=== PATIENT | male | born 1980 | race African-American/Black ===

== ENCOUNTER 2018-09-28 09:11 | Inpatient (IN) | payer OTHER ==
[2018-09-28 09:44] VITALS: BMI 18.1
--- NOTE | 2018-09-28 09:59 | HP ---
COWS - Scale Resting Pulse: 0= CA 80 or Below Sweatin=Flushed/Facial Moisture Restless Observation: 3= Extraneous Movement Pupil Size: 2= Moderately Dilated Bone or Joint Aches: 2= Severe Diffuse Aches Runny Nose/ Eye Tearin= Nasal Congestion GI Upset > 30mins: 3= Vomiting/Diarrhea Tremor Observation: 2= Slight Tremor Visible Yawning Observation: 1= 1-2x During Session Anxiety or Irritability: 2=Irritable/Anxious Goose Flesh Skin: 0=Smooth Skin (patient qualifies for opiate detox) COWS Score: 18 CIWA Score Nausea/Vomitin Muscle Tremors: 3 Anxiety: 3 Agitation: 3 Paroxysmal Sweats: 3 Orientation: 3-Disoriented Date>2 days Tacttile Disturbances: 1-Very Mild Itch/Numbness Auditory Disturbances: 1-Very Mild Visual Disturbances: 1-Very Mild Sensitivity Headache: 1-Very Mild CIWA-Ar Total Score: 22 - Admission Criteria OASAS Guidelines: Admission for Medically Managed Detox: Requires at least one of the followin. CIWA greater than 12 2. Seizures within the past 24 hours 3. Delirium tremens within the past 24 hours 4. Hallucinations within the past 24 hours 5. Acute intervention needed for co occurring medical disorder 6. Acute intervention needed for co occurring psychiatric disorder 7. Severe withdrawal that cannot be handled at a lower level of care (continued vomiting, continued diarrhea, abnormal vital signs) requiring intravenous medication and/or fluids 8. Patient presents the following: None of the above (Patient qualifies for detox from alcohol) Admission Criteria Met: Admission criteria not met Admission ROS [facility] Chief Complaint: Patient is here for alcohol, heroin withdrawals. "i'm tired of my ass getting jumped and it's time for me to change my life" "I'm here to get the help" Allergies/Adverse Reactions: Allergies Allergy/AdvReac Type Severity Reaction Status Date / Time No Known Drug Allergies Allergy Verified 09/28/18 09:31 fish derived AdvReac Severe Vomiting Verified 09/28/18 09:31 shellfish derived AdvReac Severe Vomiting Verified 09/28/18 09:31 NKDA Allergy Uncoded 09/28/18 09:31 seafood AdvReac Severe Vomiting Uncoded 09/28/18 09:31 History of Present Illness: Patient is 38 year old black male who was transferred from [facility] after being found unconscious and given naltrexone. He is here to be detoxed. He has AOB. He is using 10 beers per day and last drank this morning 5 beers. He uses marijuana about 20 bags per day and used this morning. He also admits to using K2 and cocaine. He uses cocaine $50 per day of cocaine, intravenously He uses heroin 10 bags per day, intravenously and last used last night. He has a prior history of Asthma, Seizure Disorder,Schizophrenia, Diabetes,and Bipolar Disorder. But he has not medications for it. He is undomiciled at this time but does not go to shelters. He has legal problems: warrant for arrest due to drug possession. Exam Limitations: Intoxication - Ebola screening Have you traveled outside of the country in the last 21 days: No Have you had contact with anyone from an Ebola affected area: No Do you have a fever: No - Review of Systems Constitutional: Chills, Diaphoresis EENT: reports: Blurred Vision, Nose Bleeding, Dental Problems Respiratory: reports: Cough, Wheezing Cardiac: reports: No Symptoms Reported GI: reports: Nausea, Poor Fluid Intake, Vomiting, Abdominal cramping : reports: No Symptoms Reported Musculoskeletal: reports: Back Pain, Muscle Pain, Neck Pain Integumentary: reports: No Symptoms Reported Neuro: reports: Headache, Numbness, Unsteady Gait Endocrine: reports: No Symptoms Reported, Unexplained Weight Loss Hematology: reports: Easy Bruising Psychiatric: reports: Agitated, Anxious, Disorientated Patient History - Patient Medical History Hx Anemia: No Hx Asthma: Yes Hx Chronic Obstructive Pulmonary Disease (COPD): No Hx Cancer: No Hx Cardiac Disorders: No Hx Congestive Heart Failure: No Hx Hypertension: No Hx Hypercholesterolemia: No Hx Pacemaker: No HX Cerebrovascular Accident: No Hx Seizures: Yes (last week) Hx Dementia: No Hx Diabetes: Yes Hx Gastrointestinal Disorders: No Hx Liver Disease: No Hx Genitourinary Disorders: No Hx Sexually Transmitted Disorders: No Hx Renal Disease (ESRD): No Hx Hepatitis C: No Hx Depression: No Hx Suicide Attempt: No Hx Bipolar Disorder: No Hx Schizophrenia: Yes - Patient Surgical History Past Surgical History: No Hx Neurologic Surgery: No Hx Cataract Extraction: No Hx Cardiac Surgery: No Hx Lung Surgery: No Hx Breast Surgery: No Hx Breast Biopsy: No Hx Abdominal Surgery: No Hx Appendectomy: No Hx Cholecystectomy: No Hx Genitourinary Surgery: No Hx Section: No Hx Orthopedic Surgery: No - PPD History Date: 03/21/15 - Smoking Cessation Smoking history: Current every day smoker Have you smoked in the past 12 months: Yes Aproximately how many cigarettes per day: 20 Cigars Per Day: 0 Hx Chewing Tobacco Use: No Initiated information on smoking cessation: Yes 'Breaking Loose' booklet given: 09/28/18 - Substance & Tx. History Hx Alcohol Use: Yes (1 pint and 6 pack of beer) Hx Substance Use: Yes (heroin 10 bags per day) Substance Use Type: Alcohol, Cocaine, Heroin, Marijuana Hx Substance Use Treatment: Yes (a long time ago does not remember what hospital it was) - Substances abused Crack Substance route: Smoking Frequency: Daily Amount used: $40 Age of first use: 8 Date of last use: 09/28/18 Alcohol Substance route: Oral Frequency: Daily Amount used: Beer- crazy horse 24 oz Age of first use: 18 Date of last use: 09/28/18 K2/Spice Substance route: Smoking Frequency: Daily Amount used: i stick Age of first use: 15 Date of last use: 09/27/18 Heroin Substance route: Injection Frequency: 1-2 times per week Amount used: 2 bags Age of first use: 10 Date of last use: 09/27/18 Family Disease History - Family Disease History Family Disease History: Diabetes: Father (etoh ), Heart Disease: Father , Respiratory: Sister (asthma), Other: Mother (crack cocaine ), Brother (alcohol dependence) Admission Physical Exam S - Vital Signs Vital Signs: Vital Signs - 24 hr 09/28/18 09:36 Temperature 97.4 F L Pulse Rate 65 Respiratory 16 Rate Blood Pressure 104/65 - Physical General Appearance: Yes: Mild Distress, Irritable, Sweating HEENTM: Yes: EOMI, Hearing grossly Normal, Normocephalic, Normal Voice, ROSALINA, Pharynx Normal Respiratory: Yes: Chest Non-Tender, Lungs Clear, Normal Breath Sounds, No Respiratory Distress, No Accessory Muscle Use Neck: Yes: Mass, Other Breast: Yes: Within Normal Limits Cardiology: Yes: Regular Rhythm, Regular Rate, S1, S2 Abdominal: Yes: Non Tender, Flat, Soft (track ibarra forearms. Huge neck mass left sided) Genitourinary: Yes: Within Normal Limits Back: Yes: Normal Inspection Extremities: Yes: Normal Capillary Refill, Normal Inspection, Normal Range of Motion, Non-Tender Neurological: Yes: chart computer II-XII NML intact, Fully Oriented, Motor Strength 5/5 Integumentary: Yes: Dry Lymphatic: Yes: Within Normal Limits - Addiitonal Findings: Patient has a large neck mass on left side. - Diagnostic (1) Alcohol dependence with uncomplicated withdrawal Current Visit: Yes Status: Chronic (2) Asthma Current Visit: No Status: Chronic Qualifiers: Asthma severity: mild intermittent Asthma complication type: uncomplicated Qualified Code(s): J45.20 - Mild intermittent asthma, uncomplicated (3) Nicotine dependence Current Visit: Yes Status: Chronic Qualifiers: Nicotine product type: cigarettes Substance use status: other nicotine- induced disorder Qualified Code(s): F17.218 - Nicotine dependence, cigarettes , with other nicotine-induced disorders Cleared for Admission S - Detox or Rehab S Level of Care: Medically Managed Detox Regimen/Protocol: Methadone/Librium Screened but not Admitted - Documentation of Visit Screened but not Admitted: No Vital Signs - Vital Signs Vital signs refused: No Temperature: 97.4 F Temperature source: Oral Pulse Rate: 65 Respiratory Rate: 16 Blood Pressure: 104/63 BP Location: Left Arm Blood Pressure position: Sitting - Height Height: 6 ft 4 in - Weight Weight: 149 lb Weight measurement method: Standing scale - BMI Body Mass Index (BMI): 18.1 - Bowel Function Bowel Movement: No POC Urine test - Test device test lot number: not applicable Inpatient Rehab Admission - Rehab Decision to Admit Inpatient rehab admission?: No
[2018-09-28] MEDS ORDERED: MAGNESIUM HYDROX 2400MG/30ML ORAL SUSPENSION 30 ML CUP PO PRN (10:47)
[2018-09-28] MEDS ORDERED: cloNIDine HCL 0.1 MG TABLET PO PRN (10:47)
[2018-09-28] MEDS ORDERED: IBUPROFEN 400 MG TABLET (FP) PO PRN (10:47)
[2018-09-28] MEDS ORDERED: METHOCARBAMOL 500 MG TABLET PO PRN (10:47)
[2018-09-28] MEDS ORDERED: MENTHOL/PHENOL 1 EACH UD MM PRN (10:47)
[2018-09-28] MEDS ORDERED: ACETAMINOPHEN 325 MG TABLET (FP) PO PRN ×2 (10:47)
[2018-09-28] MEDS ORDERED: traZODone HCL 50 MG TABLET (FP) PO PRN (10:47)
[2018-09-28] MEDS ORDERED: chlordiazePOXIDE HCL 25 MG CAPSULE PO PRN (10:47)
[2018-09-28] MEDS ORDERED: hydrOXYzine HCL 25 MG TABLET (FP) PO PRN (10:47)
[2018-09-28] MEDS ORDERED: BISMUTH SUBSALICYLATE 262 MG/15 ML BTL PO PRN (10:47)
[2018-09-28] MEDS ORDERED: MAG HYDROX/AL HYDROX/SIMETH 30 ML UNIT-DOSE CUP PO PRN (10:47)
[2018-09-28] MEDS ORDERED: MAGNESIUM CITRATE 300 ML BOTTLE PO PRN (10:47)
[2018-09-28] MEDS ORDERED: chlordiazePOXIDE HCL 25 MG CAPSULE PO ONE (10:47)
[2018-09-28] MEDS ORDERED: ALBUTEROL SO4 8 GM HFA INHALER IH PRN (10:58)
[2018-09-28] MEDS: NICOTINE 14 MG/24 HOURS TOPICAL PATCH TD SCH ×2 (11:50→11:53)
[2018-09-28] MEDS: chlordiazePOXIDE HCL 25 MG CAPSULE PO SCH ×3 (11:50→22:15)
[2018-09-28] MEDS ORDERED: METHADONE HCL 10 MG TABLET (FOR DETOX USE ONLY) PO ONE (11:55)
[2018-09-28] MEDS: MELATONIN 5 MG TABLETS PO PRN (22:18)
[2018-09-28] MEDS: THIAMINE HCL 100 MG TABLET (FP) PO SCH (22:18)
[2018-09-29] MEDS: chlordiazePOXIDE HCL 25 MG CAPSULE PO SCH ×4 (05:40→22:27)
[2018-09-29] MEDS ORDERED: METHADONE HCL 10 MG TABLET (FOR DETOX USE ONLY) ONE (09:43)
[2018-09-29] MEDS ORDERED: METHADONE HCL 5 MG TABLET (FOR DETOX USE ONLY) ONE (09:43)
[2018-09-29] MEDS ORDERED: METHADONE (DETOX) 20 MG, METHADONE (DETOX) 5 MG PO ONE (10:00)
[2018-09-29 10:33] LABS: HEMATOCRIT 32.5 % (35.4-49); HEMOGLOBIN 11.1 GM/dL (11.7-16.9); MCH 32.8 pg (25.7-33.7); MCHC 34.1 g/dl (32.0-35.9); MEAN CELL VOLUME 96.2 fl (80-96); PLATELET COUNT 252 K/MM3 (134-434); RBC 3.38 M/mm3 (4.00-5.60); RDW 15.8 % (11.9-15.9); WHITE BLOOD COUNT 5.1 K/mm3 (4.0-10.0)
[2018-09-29] MEDS: PRENATAL VITAMINS W/ FOLIC ACID TABLET (FP) PO SCH (10:34)
[2018-09-29] MEDS: NICOTINE 14 MG/24 HOURS TOPICAL PATCH TD SCH ×2 (10:36→10:37)
[2018-09-29 10:38] LABS: ALBUMIN 4.1 g/dl (3.4-5.0); BILIRUBIN,TOTAL 0.1 mg/dL (0.2-1); BLOOD UREA NITROGEN 8.4 mg/dL (7-18); CREATININE 1.1 mg/dL (0.55-1.3); POTASSIUM 4.3 mmol/L (3.5-5.1); TOT PROT 8.2 g/dl (6.4-8.2)
--- NOTE | 2018-09-29 12:24 | PN ---
S CIWA - CIWA Score Nausea/Vomitin-No Nausea/No Vomiting Muscle Tremors: 2 Anxiety: 3 Agitation: 0-Normal Activity Paroxysmal Sweats: 3 Orientation: 0-Oriented Tacttile Disturbances: 0-None Auditory Disturbances: 0-None Visual Disturbances: 0-None Headache: 2-Mild CIWA-Ar Total Score: 10 S COWS - Scale Resting Pulse: 1= SC 81-100 Sweatin= Beads of Sweat on Face Restless Observation: 1= Difficult to Sit Still Pupil Size: 0= Normal to Room Light Bone or Joint Aches: 2= Severe Diffuse Aches Runny Nose/ Eye Tearin= None GI Upset > 30mins: 0= None Tremor Observation of Outstretched Hands: 2= Slight Tremor Visible Yawning Observation: 1= 1-2x During Session Anxiety or Irritability: 2=Irritable/Anxious Goose Flesh Skin: 0=Smooth Skin COWS Score: 12 S Progress Note (SOAP) Subjective: c/o sweats, anxiety, irritability, headache, and interrupted sleep. Objective: 09/29/18 12:21 Vital Signs 09/29/18 09/29/18 09/29/18 04:30 05:00 05:30 Temperature Pulse Rate 47 L 50 L 45 L Respiratory 18 18 18 Rate Blood Pressure 09/29/18 09/29/18 09/29/18 06:00 06:30 07:00 Temperature 97.9 F Pulse Rate 43 L 43 L 49 L Respiratory 16 16 16 Rate Blood Pressure 118/68 09/29/18 09/29/18 07:30 08:00 Temperature Pulse Rate 56 L 56 L Respiratory 16 16 Rate Blood Pressure Lab Results WBC 5.1 K/mm3 (4.0-10.0) 09/29/18 07:50 RBC 3.38 M/mm3 (4.00-5.60) L 09/29/18 07:50 Hgb 11.1 GM/dL (11.7-16.9) L 09/29/18 07:50 Hct 32.5 % (35.4-49) L 09/29/18 07:50 MCV 96.2 fl (80-96) H 09/29/18 07:50 MCHC 34.1 g/dl (32.0-35.9) 09/29/18 07:50 RDW 15.8 % (11.9-15.9) D 09/29/18 07:50 Plt Count 252 K/MM3 (134-434) 09/29/18 07:50 Sodium 141 mmol/L (136-145) 09/29/18 07:50 Potassium 4.3 mmol/L (3.5-5.1) 09/29/18 07:50 Chloride 107 mmol/L (98-107) 09/29/18 07:50 Carbon Dioxide 28 mmol/L (21-32) 09/29/18 07:50 Anion Gap 5 MMOL/L (8-16) L 09/29/18 07:50 BUN 8.4 mg/dL (7-18) 09/29/18 07:50 Creatinine 1.1 mg/dL (0.55-1.3) 09/29/18 07:50 Random Glucose 140 mg/dL (74-106) H 09/29/18 07:50 Calcium 9.0 mg/dL (8.5-10.1) 09/29/18 07:50 Labs noted. Assessment: AOX3, in no acute respiratory distress. Full ROM, ambulating in the unit. withdrawal symptoms. Plan: continue detox.
--- NOTE | 2018-09-29 17:10 | CONSULT ---
[facility] Psychiatric Consult - Data Date of interview: 09/29/18 Admission source: [facility] Identifying data: Readmission to [facility] for this 38 y/o AA male self- referred for detoxification (cannabis/K2, alcohol, cocaine). Examined at [address] [place] [address]. Patient is single, no dependents, domiciled (lives with relatives), unemployed and supported on food stamps. Substance Abuse History: Confirmed by patient. Details in current [facility] report as follows : Smoking history: Current every day smoker. Have you smoked in the past 12 months: Yes. Aproximately how many cigarettes per day: 20. Cigars Per Day: 0. Hx Chewing Tobacco Use: No. Initiated information on smoking cessation : Yes. 'Breaking Loose' booklet given: 09/28/18. - Substance & Tx. History. Hx Alcohol Use: Yes (1 pint and 6 pack of beer). Hx Substance Use: Yes (heroin 10 bags per day). Substance Use Type: Alcohol, Cocaine, Heroin, Marijuana. Hx Substance Use Treatment: Yes (a long time ago does not remember what hospital it was). - Substances abused. Crack. Substance route: Smoking. Frequency : Daily. Amount used: $40. Age of first use: 8. Date of last use: 09/28/18. Alcohol. Substance route: Oral. Frequency: Daily. Amount used: Beer- crazy horse 24 oz. Age of first use: 18. Date of last use: 09/28/18. K2/ Spice. Substance route: Smoking. Frequency: Daily. Amount used: i stick. Age of first use: 15. Date of last use: 09/27/18. Heroin. Substance route : Injection. Frequency: 1-2 times per week. Amount used: 2 bags. Age of first use: 10. Date of last use: 09/27/18 Medical History: Remarkable for bronchial asthma, recent history of drug overdose nd withdrawal-related seizures. Psychiatric History: Patient reports a history of multiple psychiatric hospitalizations ([facility], [facility]). Diagnosed with schizophrenia. Mr Wilder used to be prescribed risperdal. Patient, however, reports that he last took that medication several months ago. No OPD care. Patient denies history of suicide attempts. Physical/Sexual Abuse/Trauma History: Patient denies. Additional Comment: No toxicology available for review. Mental Status Exam - Mental Status Exam Alert and Oriented to: Time, Place, Person Cognitive Function: Grossly Intact Patient Appearance: Unkempt, Disheveled (tall frame, emaciated) Mood: Withdrawn Affect: Blunted Patient Behavior: Fatigued, Cooperative Speech Pattern: Delayed, Slurred Voice Loudness: Moderately Soft/Quiet Thought Process: Goal Oriented Thought Disorder: Bizarre Hallucinations: Denies Suicidal Ideation: Denies Homicidal Ideation: Denies Insight/Judgement: Poor Sleep: Well Appetite: Poor, Weight loss Muscle strength/Tone: Normal Gait/Station: Normal Psychiatric Findings - Problem List ([place] 1, 2,3) (1) Alcohol dependence with uncomplicated withdrawal Current Visit: Yes Status: Acute (2) Cocaine dependence Current Visit: Yes Status: Chronic (3) Cannabis dependence Current Visit: Yes Status: Chronic (4) Nicotine dependence Current Visit: Yes Status: Chronic Qualifiers: Nicotine product type: cigarettes Substance use status: other nicotine- induced disorder Qualified Code(s): F17.218 - Nicotine dependence, cigarettes , with other nicotine-induced disorders (5) Substance induced mood disorder Current Visit: Yes Status: Chronic (6) Schizophrenia Current Visit: Yes Status: Acute (7) Non-compliance Current Visit: Yes Status: Chronic - Initial Treatment Plan Initial Treatment Plan: Psychoeducation. Sleep hygiene. Detoxification. AA meetings. Risperdal 1 mg po bid (as per patient's request). Side effects/ benefits reviewed with patient, including risk for sexual impotence, galactorrhea, gynecomastia, abnormal involuntary movements disorder and cardiovascular advrese events. Patient gave verbal consent to MD. Desai.
[2018-09-29] MEDS: THIAMINE HCL 100 MG TABLET (FP) PO SCH (22:26)
[2018-09-29] MEDS: MELATONIN 5 MG TABLETS PO PRN (22:27)
[2018-09-29] MEDS: risperiDONE 1 MG TABLET (FP) PO SCH (22:28)
[2018-09-30] MEDS: chlordiazePOXIDE HCL 25 MG CAPSULE PO SCH ×4 (07:35→22:56)
[2018-09-30] MEDS ORDERED: METHADONE HCL 10 MG TABLET (FOR DETOX USE ONLY) PO ONE (10:00)
[2018-09-30] MEDS: NICOTINE 14 MG/24 HOURS TOPICAL PATCH TD SCH ×2 (14:06)
[2018-09-30] MEDS: PRENATAL VITAMINS W/ FOLIC ACID TABLET (FP) PO SCH (14:06)
[2018-09-30] MEDS: risperiDONE 1 MG TABLET (FP) PO SCH ×2 (14:06→21:29)
--- NOTE | 2018-09-30 15:44 | PN ---
[facility] CIWA - CIWA Score Nausea/Vomitin-Mild Nausea/No Vomiting Muscle Tremors: 4-Moderate,w/Arms Extend Anxiety: 4-Mod. Anxious/Guarded Agitation: 4-Moderately Restless Paroxysmal Sweats: 3 Orientation: 0-Oriented Tacttile Disturbances: 0-None Auditory Disturbances: 0-None Visual Disturbances: 0-None Headache: 0-None Present CIWA-Ar Total Score: 16 BHS COWS - Scale Resting Pulse: 0= CA 80 or Below Sweatin= Chills/Flushing Restless Observation: 3= Extraneous Movement Pupil Size: 0= Normal to Room Light Bone or Joint Aches: 2= Severe Diffuse Aches Runny Nose/ Eye Tearin= Runny Nose/Eyes GI Upset > 30mins: 3= Vomiting/Diarrhea Tremor Observation of Outstretched Hands: 2= Slight Tremor Visible Yawning Observation: 1= 1-2x During Session Anxiety or Irritability: 2=Irritable/Anxious Goose Flesh Skin: 0=Smooth Skin COWS Score: 16 [facility] Progress Note (SOAP) Subjective: Restless, interrupted sleep, anxious, sweating Objective: 09/30/18 15:41 Last Vital Signs Temp Pulse Resp BP Pulse Ox 98.6 F 70 18 106/53 L 09/30/18 06:00 09/30/18 06:00 09/30/18 06:00 09/30/18 06:00 Laboratory Tests 09/28/18 09/29/18 09/29/18 11:18 06:10 07:50 WBC 5.1 RBC 3.38 L Hgb 11.1 L Hct 32.5 L MCV 96.2 H MCH 32.8 MCHC 34.1 RDW 15.8 D Plt Count 252 MPV 8.0 Sodium Potassium Chloride Carbon Dioxide Anion Gap BUN Creatinine Est GFR (CKD-EPI)AfAm Est GFR (CKD-EPI)NonAf POC Glucometer 178 91 Random Glucose Calcium Total Bilirubin AST ALT Alkaline Phosphatase Total Protein Albumin RPR Titer HIV 1&2 Antibody Screen HIV P24 Antigen 09/29/18 09/29/18 09/29/18 07:50 07:50 07:50 WBC RBC Hgb Hct MCV MCH MCHC RDW Plt Count MPV Sodium 141 Potassium 4.3 Chloride 107 Carbon Dioxide 28 Anion Gap 5 L BUN 8.4 Creatinine 1.1 Est GFR (CKD-EPI)AfAm 98.18 Est GFR (CKD-EPI)NonAf 84.71 POC Glucometer Random Glucose 140 H Calcium 9.0 Total Bilirubin 0.1 L AST 51 H ALT 32 Alkaline Phosphatase 101 Total Protein 8.2 Albumin 4.1 RPR Titer Nonreactive HIV 1&2 Antibody Screen Negative HIV P24 Antigen Negative 09/29/18 17:04 WBC RBC Hgb Hct MCV MCH MCHC RDW Plt Count MPV Sodium Potassium Chloride Carbon Dioxide Anion Gap BUN Creatinine Est GFR (CKD-EPI)AfAm Est GFR (CKD-EPI)NonAf POC Glucometer 77 Random Glucose Calcium Total Bilirubin AST ALT Alkaline Phosphatase Total Protein Albumin RPR Titer HIV 1&2 Antibody Screen HIV P24 Antigen Labs reviewed: anemia, elevated glucose now normal FS at 77 mg/dl Assessment: 09/30/18 15:43 Withdrawal sxs Anemia noted Plan: Continue detox Encouraged PO water hydration Anemia, mild: most likely r/t alcoholism, follow up with PCP for management
[2018-09-30] MEDS: THIAMINE HCL 100 MG TABLET (FP) PO SCH (22:57)
[2018-10-01] MEDS ORDERED: chlordiazePOXIDE HCL 10 MG CAPSULE PO PRN
[2018-10-01] MEDS: chlordiazePOXIDE HCL 10 MG CAPSULE PO SCH ×4 (06:43→23:47)
[2018-10-01] MEDS ORDERED: METHADONE HCL 5 MG TABLET (FOR DETOX USE ONLY) ONE (08:43)
[2018-10-01] MEDS ORDERED: METHADONE HCL 10 MG TABLET (FOR DETOX USE ONLY) ONE (08:43)
[2018-10-01] MEDS ORDERED: METHADONE (DETOX) 10 MG, METHADONE (DETOX) 5 MG PO ONE (10:00)
[2018-10-01] MEDS: PRENATAL VITAMINS W/ FOLIC ACID TABLET (FP) PO SCH (12:02)
[2018-10-01] MEDS: risperiDONE 1 MG TABLET (FP) PO SCH ×2 (12:02→22:42)
[2018-10-01] MEDS: NICOTINE 14 MG/24 HOURS TOPICAL PATCH TD SCH ×2 (12:04)
--- NOTE | 2018-10-01 13:33 | PN ---
[facility] CIWA - CIWA Score Nausea/Vomitin-No Nausea/No Vomiting Muscle Tremors: 2 Anxiety: 2 Agitation: 3 Paroxysmal Sweats: 2 Orientation: 0-Oriented Tacttile Disturbances: 0-None Auditory Disturbances: 0-None Visual Disturbances: 0-None Headache: 0-None Present CIWA-Ar Total Score: 9 BHS COWS - Scale Resting Pulse: 0= [place] 80 or Below Sweatin= Chills/Flushing Restless Observation: 0= Sits Still Pupil Size: 0= Normal to Room Light Bone or Joint Aches: 2= Severe Diffuse Aches Runny Nose/ Eye Tearin= Runny Nose/Eyes GI Upset > 30mins: 0= None Tremor Observation of Outstretched Hands: 1= Tremor [place], Not Seen Yawning Observation: 1= 1-2x During Session Anxiety or Irritability: 1=Feels Anxious/Irritable Goose Flesh Skin: 0=Smooth Skin COWS Score: 8 S Progress Note (SOAP) Subjective: sweats shakes interrupted sleep groggy Objective: 10/01/18 13:38 Vital Signs Temperature 96.8 F L 10/01/18 09:23 Pulse Rate 73 10/01/18 09:23 Respiratory Rate 20 10/01/18 09:23 Blood Pressure 103/65 10/01/18 09:23 O2 Sat by Pulse Oximetry (%) Laboratory Tests 09/28/18 09/29/18 09/29/18 11:18 06:10 07:50 WBC 5.1 RBC 3.38 L Hgb 11.1 L Hct 32.5 L MCV 96.2 H MCH 32.8 MCHC 34.1 RDW 15.8 D Plt Count 252 MPV 8.0 Sodium Potassium Chloride Carbon Dioxide Anion Gap BUN Creatinine Est GFR (CKD-EPI)AfAm Est GFR (CKD-EPI)NonAf POC Glucometer 178 91 Random Glucose Calcium Total Bilirubin AST ALT Alkaline Phosphatase Total Protein Albumin RPR Titer HIV 1&2 Antibody Screen HIV P24 Antigen 09/29/18 09/29/18 09/29/18 07:50 07:50 07:50 WBC RBC Hgb Hct MCV MCH MCHC RDW Plt Count MPV Sodium 141 Potassium 4.3 Chloride 107 Carbon Dioxide 28 Anion Gap 5 L BUN 8.4 Creatinine 1.1 Est GFR (CKD-EPI)AfAm 98.18 Est GFR (CKD-EPI)NonAf 84.71 POC Glucometer Random Glucose 140 H Calcium 9.0 Total Bilirubin 0.1 L AST 51 H ALT 32 Alkaline Phosphatase 101 Total Protein 8.2 Albumin 4.1 RPR Titer Nonreactive HIV 1&2 Antibody Screen Negative HIV P24 Antigen Negative 09/29/18 09/30/18 10/01/18 17:04 16:40 06:34 WBC RBC Hgb Hct MCV MCH MCHC RDW Plt Count MPV Sodium Potassium Chloride Carbon Dioxide Anion Gap BUN Creatinine Est GFR (CKD-EPI)AfAm Est GFR (CKD-EPI)NonAf POC Glucometer 77 103 139 Random Glucose Calcium Total Bilirubin AST ALT Alkaline Phosphatase Total Protein Albumin RPR Titer HIV 1&2 Antibody Screen HIV P24 Antigen labs noted aaox3 ambulating no acute distress Assessment: 10/01/18 13:39 withdrawal sx pt is rambling on and not making any sense to some information he is stating Plan: continue detox increase fluids ammonia level ordered
[2018-10-01] MEDS: THIAMINE HCL 100 MG TABLET (FP) PO SCH (22:42)
[2018-10-02] MEDS: chlordiazePOXIDE HCL 10 MG CAPSULE PO SCH ×2 (06:37→17:29)
[2018-10-02] MEDS ORDERED: METHADONE HCL 10 MG TABLET (FOR DETOX USE ONLY) PO ONE (10:00)
[2018-10-02] MEDS ORDERED: LACTULOSE 20 GM/30 ML UDC (FOR ORAL USE ONLY) PO ONE (10:46)
[2018-10-02] MEDS: PRENATAL VITAMINS W/ FOLIC ACID TABLET (FP) PO SCH (10:54)
[2018-10-02] MEDS: NICOTINE 14 MG/24 HOURS TOPICAL PATCH TD SCH ×2 (10:54)
--- NOTE | 2018-10-02 10:54 | PN ---
S CIWA - CIWA Score Nausea/Vomitin-No Nausea/No Vomiting Muscle Tremors: 2 Anxiety: 1-Mildly Anxious Agitation: 1-Slight > Activity Paroxysmal Sweats: 1-Minimal Palms Moist Orientation: 0-Oriented Tacttile Disturbances: 0-None Auditory Disturbances: 0-None Visual Disturbances: 0-None Headache: 0-None Present CIWA-Ar Total Score: 5 BHS COWS - Scale Resting Pulse: 0= SC 80 or Below Sweatin= No chills or Flushing Restless Observation: 1= Difficult to Sit Still Pupil Size: 0= Normal to Room Light Bone or Joint Aches: 1= Mild Discomfort Runny Nose/ Eye Tearin= None GI Upset > 30mins: 0= None Tremor Observation of Outstretched Hands: 1= Tremor [place], Not Seen Yawning Observation: 1= 1-2x During Session Anxiety or Irritability: 1=Feels Anxious/Irritable Goose Flesh Skin: 0=Smooth Skin COWS Score: 5 S Progress Note (SOAP) Subjective: sweats restless Objective: 10/02/18 10:50 Vital Signs Temperature 97.6 F 10/02/18 09:17 Pulse Rate 54 L 10/02/18 09:17 Respiratory Rate 18 10/02/18 09:17 Blood Pressure 125/75 10/02/18 09:17 O2 Sat by Pulse Oximetry (%) Laboratory Tests 09/28/18 09/29/18 09/29/18 11:18 06:10 07:50 WBC 5.1 RBC 3.38 L Hgb 11.1 L Hct 32.5 L MCV 96.2 H MCH 32.8 MCHC 34.1 RDW 15.8 D Plt Count 252 MPV 8.0 Sodium Potassium Chloride Carbon Dioxide Anion Gap BUN Creatinine Est GFR (CKD-EPI)AfAm Est GFR (CKD-EPI)NonAf POC Glucometer 178 91 Random Glucose Calcium Total Bilirubin AST ALT Alkaline Phosphatase Ammonia Total Protein Albumin RPR Titer HIV 1&2 Antibody Screen HIV P24 Antigen 09/29/18 09/29/18 09/29/18 07:50 07:50 07:50 WBC RBC Hgb Hct MCV MCH MCHC RDW Plt Count MPV Sodium 141 Potassium 4.3 Chloride 107 Carbon Dioxide 28 Anion Gap 5 L BUN 8.4 Creatinine 1.1 Est GFR (CKD-EPI)AfAm 98.18 Est GFR (CKD-EPI)NonAf 84.71 POC Glucometer Random Glucose 140 H Calcium 9.0 Total Bilirubin 0.1 L AST 51 H ALT 32 Alkaline Phosphatase 101 Ammonia Total Protein 8.2 Albumin 4.1 RPR Titer Nonreactive HIV 1&2 Antibody Screen Negative HIV P24 Antigen Negative 09/29/18 09/30/18 10/01/18 17:04 16:40 06:34 WBC RBC Hgb Hct MCV MCH MCHC RDW Plt Count MPV Sodium Potassium Chloride Carbon Dioxide Anion Gap BUN Creatinine Est GFR (CKD-EPI)AfAm Est GFR (CKD-EPI)NonAf POC Glucometer 77 103 139 Random Glucose Calcium Total Bilirubin AST ALT Alkaline Phosphatase Ammonia Total Protein Albumin RPR Titer HIV 1&2 Antibody Screen HIV P24 Antigen 10/01/18 10:10 WBC RBC Hgb Hct MCV MCH MCHC RDW Plt Count MPV Sodium Potassium Chloride Carbon Dioxide Anion Gap BUN Creatinine Est GFR (CKD-EPI)AfAm Est GFR (CKD-EPI)NonAf POC Glucometer Random Glucose Calcium Total Bilirubin AST ALT Alkaline Phosphatase Ammonia 55.90 H Total Protein Albumin RPR Titer HIV 1&2 Antibody Screen HIV P24 Antigen labs noted ammonia level 55.90; lactulose 20mg bid ordered aaox3 ambulating no acute distress Assessment: 10/02/18 10:51 mild withdrawal sx Plan: continue detox increase fluids d/c in am
[2018-10-02] MEDS: risperiDONE 1 MG TABLET (FP) PO SCH ×2 (12:05→22:18)
[2018-10-02] MEDS ORDERED: LACTULOSE 20 GM/30 ML UDC (FOR ORAL USE ONLY) PO SCH (22:00)
[2018-10-02] MEDS: MELATONIN 5 MG TABLETS PO PRN (22:18)
[2018-10-02] MEDS: THIAMINE HCL 100 MG TABLET (FP) PO SCH (22:18)
[2018-10-03] MEDS ORDERED: chlordiazePOXIDE HCL 10 MG CAPSULE PO ONE (05:00)
[2018-10-03] MEDS ORDERED: METHADONE HCL 5 MG TABLET (FOR DETOX USE ONLY) PO ONE (06:00)
[2018-10-03 07:54] VITALS: BP 116/72; PULSE 68; TEMP 96.1
--- NOTE | 2018-10-03 09:32 | DS ---
[facility] Detox Discharge Summary Admission Date: 09/28/18 Discharge Date: 10/03/18 - History Present History: Alcohol Dependence, Cannabis Dependence, Cocaine Dependence - Physical Exam Results Vital Signs: Vital Signs Temperature 96.1 F L 10/03/18 07:54 Pulse Rate 68 10/03/18 07:54 Respiratory Rate 18 10/03/18 07:54 Blood Pressure 116/72 10/03/18 07:54 O2 Sat by Pulse Oximetry (%) Pertinent Admission Physical Exam Findings: Laboratory Tests 09/28/18 09/28/18 09/29/18 11:00 11:18 06:10 WBC RBC Hgb Hct MCV MCH MCHC RDW Plt Count MPV Sodium Potassium Chloride Carbon Dioxide Anion Gap BUN Creatinine Est GFR (CKD-EPI)AfAm Est GFR (CKD-EPI)NonAf POC Glucometer 178 91 Random Glucose Calcium Total Bilirubin AST ALT Alkaline Phosphatase Ammonia Total Protein Albumin RPR Titer HIV 1&2 Antibody Screen HIV P24 Antigen TB (QFT) Incubation TB Test (QFT) Nil 0.07 TB Test (QFT) Mitogen >10.00 TB Test (QFT) Antigen 0.08 TB Test (QFT) Negative TB Positive Criteria 09/29/18 09/29/18 09/29/18 07:50 07:50 07:50 WBC 5.1 RBC 3.38 L Hgb 11.1 L Hct 32.5 L MCV 96.2 H MCH 32.8 MCHC 34.1 RDW 15.8 D Plt Count 252 MPV 8.0 Sodium 141 Potassium 4.3 Chloride 107 Carbon Dioxide 28 Anion Gap 5 L BUN 8.4 Creatinine 1.1 Est GFR (CKD-EPI)AfAm 98.18 Est GFR (CKD-EPI)NonAf 84.71 POC Glucometer Random Glucose 140 H Calcium 9.0 Total Bilirubin 0.1 L AST 51 H ALT 32 Alkaline Phosphatase 101 Ammonia Total Protein 8.2 Albumin 4.1 RPR Titer Nonreactive HIV 1&2 Antibody Screen HIV P24 Antigen TB (QFT) Incubation TB Test (QFT) Nil TB Test (QFT) Mitogen TB Test (QFT) Antigen TB Test (QFT) TB Positive Criteria 09/29/18 09/29/18 09/30/18 07:50 17:04 16:40 WBC RBC Hgb Hct MCV MCH MCHC RDW Plt Count MPV Sodium Potassium Chloride Carbon Dioxide Anion Gap BUN Creatinine Est GFR (CKD-EPI)AfAm Est GFR (CKD-EPI)NonAf POC Glucometer 77 103 Random Glucose Calcium Total Bilirubin AST ALT Alkaline Phosphatase Ammonia Total Protein Albumin RPR Titer HIV 1&2 Antibody Screen Negative HIV P24 Antigen Negative TB (QFT) Incubation TB Test (QFT) Nil TB Test (QFT) Mitogen TB Test (QFT) Antigen TB Test (QFT) TB Positive Criteria 10/01/18 10/01/18 10/03/18 06:34 10:10 06:06 WBC RBC Hgb Hct MCV MCH MCHC RDW Plt Count MPV Sodium Potassium Chloride Carbon Dioxide Anion Gap BUN Creatinine Est GFR (CKD-EPI)AfAm Est GFR (CKD-EPI)NonAf POC Glucometer 139 144 Random Glucose Calcium Total Bilirubin AST ALT Alkaline Phosphatase Ammonia 55.90 H Total Protein Albumin RPR Titer HIV 1&2 Antibody Screen HIV P24 Antigen TB (QFT) Incubation TB Test (QFT) Nil TB Test (QFT) Mitogen TB Test (QFT) Antigen TB Test (QFT) TB Positive Criteria pt aaox3 ambulating no acute distress no s/s of withdrawals - Treatment Hospital Course: Detox Protocol Followed, Detoxed Safely, Responded well, Discharged Condition Good, Rehab Referral Accepted Patient has Accepted a Rehab Referral to: declined rehab; referral provided - Medication Discharge Medications: Ambulatory Orders Albuterol Sulfate Inhaler - [Ventolin Hfa Inhaler -] 2 inh PO Q4H 03/19/15 Risperidone [Risperdal] 2 mg PO BID 03/19/15 - Diagnosis (1) Alcohol dependence with uncomplicated withdrawal Current Visit: Yes Status: Chronic (2) Schizophrenia Current Visit: Yes Status: Chronic Qualifiers: Schizophrenia type: unspecified Qualified Code(s): F20.9 - Schizophrenia, unspecified (3) Cannabis dependence Current Visit: Yes Status: Chronic (4) Cocaine dependence Current Visit: Yes Status: Chronic Qualifiers: Substance use status: uncomplicated Qualified Code(s): F14.20 - Cocaine dependence, uncomplicated (5) Nicotine dependence Current Visit: Yes Status: Chronic Qualifiers: Nicotine product type: cigarettes Substance use status: other nicotine- induced disorder Qualified Code(s): F17.218 - Nicotine dependence, cigarettes , with other nicotine-induced disorders (6) Non-compliance Current Visit: Yes Status: Chronic (7) Substance induced mood disorder Current Visit: Yes Status: Chronic (8) Hip pain, left Current Visit: No Status: Acute (9) Asthma Current Visit: Yes Status: Chronic Qualifiers: Asthma severity: mild intermittent Asthma complication type: uncomplicated Qualified Code(s): J45.20 - Mild intermittent asthma, uncomplicated - AMA Did Patient Leave Against Medical Advice: No
[2018-10-03] MEDS ORDERED: FLUOCINONIDE 0.05% CREAM (15 GM TUBE) TP SCH (10:00)
== END 2018-10-03 09:23 | disposition home or self-care (01) | DRG 773 ==
LOC: YASAS 09:11 → Y6N 11:00
PROVIDERS: ADMIT Surgery; ATTEND Surgery
PROC: HZ2ZZZZ Detoxification Services for Substance Abuse Treatment (ICD-10-PCS; principal; 2018-09-28)
DX: F11.23 Opioid dependence with withdrawal (principal); F10.230 Alcohol dependence with withdrawal, uncomplicated; F14.20 Cocaine dependence, uncomplicated; F12.20 Cannabis dependence, uncomplicated; F17.218 Nicotine dependence, cigarettes, with other nicotine-induced disorders; F20.9 Schizophrenia, unspecified; F19.24 Other psychoactive substance dependence with psychoactive substance-induced mood disorder; J45.20 Mild intermittent asthma, uncomplicated; M25.552 Pain in left hip; D64.9 Anemia, unspecified; Z86.69 Personal history of other diseases of the nervous system and sense organs; Z91.19 Patient's noncompliance with other medical treatment and regimen; Z91.013 Allergy to seafood
CPT/HCPCS: 36415; 80053; 82140; 82962; 85027; 86480; 86593; 87389; J0735; J2794

== ENCOUNTER 2019-11-22 08:54 | Inpatient (IN) | payer OTHER ==
--- NOTE | 2019-11-22 09:32 | BHS.RME ---
Substance Use & Tx History - Substance Use History Alcohol Substance amount: 12 beers 24 oz Frequency of use: Daily Substance route: Oral Date of Last Use: 11/22/19 (6am started age 16) Cocaine-Crack Substance amount: $10 Frequency of use: Daily Substance route: Smoking Date of Last Use: 11/20/19 Marijuana/Hashish Substance amount: 3 joints Frequency of use: Daily Substance route: Smoking Date of Last Use: 11/21/19 Nicotine Substance amount: 1 pack Frequency of use: Daily Substance route: Smoking Date of Last Use: 11/22/19 Physical/Psych/Mental Status - Behavior General Behavior: Increased activity (restlessness, agitation) Eye Contact: Normal - Cooperativeness Cooperativeness: Cooperative - Thinking Thought Processes: Tight, Logical, Goal Directed - Physical Health Problems Is patient presently having any pain?: No Does patient presently have any injuries (include location): No Does patient currently have a fever: No Is patient : No CIWA Nausea/Vomitin Muscle Tremors: 3 Anxiety: 4-Mod. Anxious/Guarded Agitation: 4-Moderately Restless Paroxysmal Sweats: 4-Forehead w/Sweat Beads Orientation: 1-Uncertain about Date Tacttile Disturbances: 0-None Auditory Disturbances: 0-None Visual Disturbances: 0-None Headache: 0-None Present CIWA-Ar Total Score: 21
[2019-11-22 09:57] VITALS: BMI 19.5
--- NOTE | 2019-11-22 10:10 | HP ---
CIWA Score Nausea/Vomitin Muscle Tremors: 3 Anxiety: 4-Mod. Anxious/Guarded Agitation: 4-Moderately Restless Paroxysmal Sweats: 4-Forehead w/Sweat Beads Orientation: 1-Uncertain about Date Tacttile Disturbances: 0-None Auditory Disturbances: 0-None Visual Disturbances: 0-None Headache: 0-None Present CIWA-Ar Total Score: 21 - Admission Criteria OASAS Guidelines: Admission for Medically Managed Detox: Requires at least one of the followin. CIWA greater than 12 2. Seizures within the past 24 hours 3. Delirium tremens within the past 24 hours 4. Hallucinations within the past 24 hours 5. Acute intervention needed for co occurring medical disorder 6. Acute intervention needed for co occurring psychiatric disorder 7. Severe withdrawal that cannot be handled at a lower level of care (continued vomiting, continued diarrhea, abnormal vital signs) requiring intravenous medication and/or fluids 8. Admitting History and Physical - Smoking History Smoking history: Current every day smoker Have you smoked in the past 12 months: Yes Aproximately how many cigarettes per day: 20 - Alcohol/Substance Use Hx Alcohol Use: Yes (1 pint and 6 pack of beer) Admission ROS [facility] Chief Complaint: " I want to stop drinking." Allergies/Adverse Reactions: Allergies Allergy/AdvReac Type Severity Reaction Status Date / Time egg Allergy Verified 11/22/19 09:52 No Known Drug Allergies Allergy Verified 09/28/18 09:31 fish derived AdvReac Severe Vomiting Verified 09/28/18 09:31 shellfish derived AdvReac Severe Vomiting Verified 09/28/18 09:31 NKDA Allergy Uncoded 09/28/18 09:31 seafood AdvReac Severe Vomiting Uncoded 09/28/18 09:31 History of Present Illness: 39 year old male with history of alcohol dependence with withdrawals, cocaine use disorder, cannabis use disorder and nicotine dependence. 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 RANJIT=0.117 CIWA=21 Exam Limitations: No Limitations - Ebola screening Have you traveled outside of the country in the last 21 days: No Have you had contact with anyone from an Ebola affected area: No Have you been sick,other than usual withdrawal symptoms: No Do you have a fever: No - Review of Systems Constitutional: Chills, Diaphoresis, Unintentional Wgt. Loss EENT: reports: No Symptoms Reported Respiratory: reports: No Symptoms reported Cardiac: reports: No Symptoms Reported GI: reports: No Symptoms Reported : reports: No Symptoms Reported Musculoskeletal: reports: No Symptoms Reported Integumentary: reports: No Symptoms Reported Neuro: reports: Tremors Endocrine: reports: No Symptoms Reported Hematology: reports: No Symptoms Reported Psychiatric: reports: Judgement Intact, Orientated x3, Agitated, Anxious, Depressed Other Systems: Reviewed and Negative Patient History - Patient Medical History Hx Anemia: No Hx Asthma: Yes Hx Chronic Obstructive Pulmonary Disease (COPD): No Hx Cancer: No Hx Cardiac Disorders: No Hx Congestive Heart Failure: No Hx Hypertension: No Hx Hypercholesterolemia: No Hx Pacemaker: No HX Cerebrovascular Accident: No Hx Seizures: No Hx Dementia: No Hx Diabetes: No Hx Gastrointestinal Disorders: No Hx Liver Disease: No Hx Genitourinary Disorders: No Hx Sexually Transmitted Disorders: No Hx Renal Disease (ESRD): No Hx Hepatitis C: No Hx Depression: Yes Hx Suicide Attempt: No Hx Bipolar Disorder: No Hx Schizophrenia: Yes - Patient Surgical History Past Surgical History: No Hx Neurologic Surgery: No Hx Cataract Extraction: No Hx Cardiac Surgery: No Hx Lung Surgery: No Hx Breast Surgery: No Hx Breast Biopsy: No Hx Abdominal Surgery: No Hx Appendectomy: No Hx Cholecystectomy: No Hx Genitourinary Surgery: No Hx Section: No Hx Orthopedic Surgery: No Anesthesia Reaction: No - PPD History Previous Implant?: Yes Documented Results: Negative w/o proof Implanted On Prior R Admission?: No Date: 03/21/15 PPD to be Administered?: Yes - Smoking Cessation Smoking history: Current every day smoker Have you smoked in the past 12 months: Yes Aproximately how many cigarettes per day: 20 Cigars Per Day: 0 Hx Chewing Tobacco Use: No Initiated information on smoking cessation: Yes 'Breaking Loose' booklet given: 11/22/19 - Substances abused Alcohol Substance route: Oral Frequency: Daily Amount used: 12 24 oz beers Age of first use: 16 Date of last use: 11/22/19 Crack Substance route: Smoking Frequency: Daily Amount used: $10 Age of first use: 39 Date of last use: 11/20/19 Marijuana/Hashish Substance route: Smoking Frequency: Daily Amount used: 3 joints Age of first use: 18 Date of last use: 11/21/19 Admission Physical Exam BHS - Vital Signs Vital Signs: Vital Signs - 24 hr 11/22/19 11/22/19 09:53 09:57 Temperature 96.9 F L 96.9 F L Pulse Rate 76 76 Respiratory 18 18 Rate Blood Pressure 122/82 122/82 - Physical General Appearance: Yes: Mild Distress, Thin, Tremorous, Irritable HEENTM: Yes: EOMI, Hearing grossly Normal, Normal ENT Inspection, Normocephalic, Normal Voice, ROSALINA, Pharynx Normal, Tm's normal Respiratory: Yes: Chest Non-Tender, Lungs Clear, Normal Breath Sounds, No Respiratory Distress, No Accessory Muscle Use Neck: Yes: No masses,lesions,Nodules, Supple, Trachea in good position Breast: Yes: Within Normal Limits Cardiology: Yes: Regular Rhythm, Regular Rate, S1, S2 Abdominal: Yes: Normal Bowel Sounds, Non Tender, Flat, Soft Genitourinary: Yes: Within Normal Limits Back: Yes: Normal Inspection Musculoskeletal: Yes: full range of Motion, Gait Steady, Pelvis Stable Extremities: Yes: Normal Capillary Refill, Normal Inspection, Normal Range of Motion, Non-Tender Neurological: Yes: cooker process cheese II-XII NML intact, Fully Oriented, Alert, Motor Strength 5/5, Normal Mood/Affect, Normal Response Integumentary: Yes: Normal Color, Dry, Warm Lymphatic: Yes: Within Normal Limits - Diagnostic (1) Alcohol dependence with uncomplicated withdrawal Current Visit: No Status: Chronic (2) Asthma Current Visit: No Status: Chronic Qualifiers: Asthma severity: mild intermittent Asthma complication type: uncomplicated Qualified Code(s): J45.20 - Mild intermittent asthma, uncomplicated (3) Cannabis dependence Current Visit: No Status: Chronic (4) Cocaine dependence Current Visit: No Status: Chronic Qualifiers: Substance use status: uncomplicated Qualified Code(s): F14.20 - Cocaine dependence, uncomplicated (5) Nicotine dependence Current Visit: No Status: Chronic Qualifiers: Nicotine product type: cigarettes Substance use status: other nicotine- induced disorder Qualified Code(s): F17.218 - Nicotine dependence, cigarettes, with other nicotine-induced disorders (6) Non-compliance Current Visit: No Status: Chronic (7) Schizophrenia Current Visit: No Status: Chronic Qualifiers: Schizophrenia type: unspecified Qualified Code(s): F20.9 - Schizophrenia, unspecified (8) Substance induced mood disorder Current Visit: No Status: Chronic Cleared for Admission BHS - Detox or Rehab S Level of Care: Medically Managed Detox Regimen/Protocol: Librium Claeared for Rehab Admission: No Screened but not Admitted - Documentation of Visit Screened but not Admitted: No Breathalyzer - Breathalyzer Breathalyzer: 0.117 Vital Signs - Vital Signs Vital signs refused: No Temperature: 96.9 F Pulse Rate: 76 Respiratory Rate: 12 Blood Pressure: 122/82 BP Location: Left Arm Blood Pressure position: Sitting - Height Height: 6 ft 4 in - Weight Weight: 160 lb Weight measurement method: Standing scale - BMI Body Mass Index (BMI): 19.5 - Bowel Function Bowel Movement: No POC Urine test - Test device test lot number: not applicable Urine Drug Screen - Test Device Lot number: [id number] Expiration date: 06/11/21 - Control Is test valid?: Yes - Results Drug screen NEGATIVE: No Urine drug screen results: THC-Marijuana Inpatient Rehab Admission - Rehab Decision to Admit Inpatient rehab admission?: No
[2019-11-22] MEDS ORDERED: BISMUTH SUBSALICYLATE 262 MG/15 ML BTL PO PRN (10:16)
[2019-11-22] MEDS ORDERED: IBUPROFEN 400 MG TABLET (FP) PO PRN (10:16)
[2019-11-22] MEDS ORDERED: chlordiazePOXIDE HCL 25 MG CAPSULE PO PRN (10:16)
[2019-11-22] MEDS ORDERED: MENTHOL/PHENOL 1 EACH UD MM PRN (10:16)
[2019-11-22] MEDS ORDERED: ACETAMINOPHEN 325 MG TABLET (FP) PO PRN ×2 (10:16)
[2019-11-22] MEDS ORDERED: MAGNESIUM CITRATE 300 ML BOTTLE PO PRN (10:16)
[2019-11-22] MEDS ORDERED: ONDANSETRON *ODT* 4 MG TABLET SL PRN (10:16)
[2019-11-22] MEDS ORDERED: MAGNESIUM HYDROX 2400MG/30ML ORAL SUSPENSION 30 ML CUP PO PRN (10:16)
[2019-11-22] MEDS ORDERED: METHOCARBAMOL 500 MG TABLET PO PRN (10:16)
[2019-11-22] MEDS ORDERED: MAG HYDROX/AL HYDROX/SIMETH 30 ML UNIT-DOSE CUP PO PRN (10:16)
[2019-11-22] MEDS ORDERED: NICOTINE POLACRILEX 2 MG GUM BUC PRN (10:16)
[2019-11-22] MEDS: PRENATAL VITAMINS W/ FOLIC ACID TABLET (FP) PO SCH (10:57)
[2019-11-22] MEDS: chlordiazePOXIDE HCL 25 MG CAPSULE PO SCH ×3 (10:57→22:28)
[2019-11-22] MEDS: NICOTINE 7 MG/24 HOURS TOPICAL PATCH TD SCH (10:57)
[2019-11-22] MEDS: hydrOXYzine PAMOATE 25 MG CAPSULE (FP) PO SCH ×3 (13:24→22:39)
[2019-11-22 14:04] LABS: HEMATOCRIT 35.4 % (35.4-49); HEMOGLOBIN 12.1 GM/dL (11.7-16.9); MCH 30.9 pg (25.7-33.7); MCHC 34.1 g/dl (32.0-35.9); MEAN CELL VOLUME 90.7 fl (80-96); MEAN PLT VOLUME 8.3 fl (7.5-11.1); PLATELET COUNT 286 K/MM3 (134-434); RDW 14.9 % (11.9-15.9); WHITE BLOOD COUNT 4.7 K/mm3 (4.0-10.0)
[2019-11-22 14:21] LABS: BILIRUBIN,TOTAL 0.8 mg/dL (0.2-1); BLOOD UREA NITROGEN 8.1 mg/dL (7-18); CALCIUM 9.2 mg/dL (8.5-10.1); CREATININE 0.9 mg/dL (0.55-1.3); POTASSIUM 4.4 mmol/L (3.5-5.1); TOT PROT 9.3 g/dl (6.4-8.2)
--- OUTSIDE RECORDS SUMMARY | 2019-11-22 17:31 | XMS ---
:[address] [facility] Care Team Providers Name Role Phone Other, Doctor Unavailable Unavailable Re-disclosure Warning The records that you are about to access may contain information from federally- assisted alcohol or drug abuse programs. If such information is present, then the following federally mandated warning applies: This information has been disclosed to you from records protected by federal confidentiality rules (42 CFR part 2). The federal rules prohibit you from making any further disclosure of this information unless further disclosure is expressly permitted by the written consent of the person to whom it pertains or as otherwise permitted by 42 CFR part 2. A general authorization for the release of medical or other information is NOT sufficient for this purpose. The Federal rules restrict any use of the information to criminally investigate or prosecute any alcohol or drug abuse patient.The records that you are about to access may contain highly sensitive health information, the redisclosure of which is protected by Article 27-F of the [facility] Public Health law. If you continue you may haveaccess to information: Regarding HIV / AIDS; Provided by facilities licensed or operated by the [facility] Office of Mental Health; or Provided by the [facility] Office for People With Developmental Disabilities. If such information is present, then the following [facility] mandated warning applies: This information has been disclosed to you from confidential records which are protected by state law. State law prohibits you from making any further disclosure of this information without the specific written consent of the person to whom it pertains, or as otherwise permitted by law. Any unauthorized further disclosure in violation of state law may result in a fine or shelter sentence or both. A general authorization for the release of medical or other information is NOT sufficient authorization for further disclosure. Encounters Encounter Providers Location Date Indications Data Source(s ) Emergency Attender: Doctor [id number] 03/08/2019 LFT KNEE PAIN, [facility] Other 08:42:00 PM [facility] EST LFT K[facility]EE PAIN, INTOX Admission cancelled. Disregard status an d admitted date. Insurance Providers Payer name Policy type Policy ID Covered Covered democrat's Policy P chavez / Coverage democrat ID relationship to Mann Inf ormation type mann KEITH [id number] [facility] NON [facility] Medicaid Medicaid [id number] 1 [id number] Problems, Conditions, and Diagnoses Code Display Name Description Problem Type Effective Dates Data Source(s) LFT KNEE PAIN, LFT KNEE PAIN, Diagnosis 03/08/2019 [facility] INTOX INTOX 08:42:00 PM EST [facility] L[facility]NEE [facility] LFT KNEE PAIN Diagnosis 03/08/2019 [facility] 08:42:00 PM EST [facility] Results ID Date Data Source [id number] 10/09/2019 12:17:00 PM EDT [facility] alth System Name Value Range Interpretation Code Description Data Analy rce(s) Supporting Document(s ) SARS-CoV-2 [facility] RNA [facility] Ql SAY+probe This lab was ordered by [facility] and reported by [facility]. ID Date Data Source [id number] 09/19/2019 09:52:00 AM EDT [facility] System Name Value Range Interpretation Code Description Data Analy rce(s) Supporting Document(s ) SARS-CoV-2 [facility] RNA [facility] Ql SAY+probe This lab was ordered by [facility] and reported by [facility]. ID Date Data Source [id number] 08/28/2019 12:00:00 AM EDT [facility] System Name Value Range Interpretation Code Description Data Analy rce(s) Supporting Document(s ) SARS-CoV-2 [facility] RNA [facility] Ql SAY+probe This lab was ordered by [facility] and reported by [facility]. ID Date Data Source [id number] 07/25/2019 01:22:00 PM EDT [facility] System Name Value Range Interpretation Code Description Data Analy rce(s) Supporting Document(s ) SARS-CoV-2 [facility] RNA XXX Ql Health System SAY+probe This lab was ordered by [facility] and reported by [facility]. ID Date Data Source [id number] 07/23/2019 08:15:00 AM EDT [facility] System Name Value Range Interpretation Code Description Data Analy rce(s) Supporting Document(s ) SARS-CoV-2 [facility] RNA Resp [facility] System Ql SAY+probe This lab was ordered by [facility] and reported by [facility]. Procedure
--- OUTSIDE RECORDS SUMMARY | 2019-11-22 18:43 | XMS ---
:1980 Author Organization [facility] Care Team Providers Name Role Phone Other, [...] is protected by Article 27-F of the [facility] Public Health law. If you continue you may haveaccess to information: Regarding HIV / AIDS; Provided by facilities licensed or operated by the [facility] Office of Mental Health; or Provided by the [facility] Office for People With Developmental Disabilities. If such information is present, then the following [facility] mandated warning applies: This information has [...] law may result in a fine or halfway sentence or both. A general authorization for [...] name Policy type Policy ID Covered Covered alliance party's Policy P chavez / Coverage alliance party ID relationship to Mann Inf ormation type mann KEITH [id number] [facility] NON [facility] Medicaid Medicaid [id number] Problems, Conditions, and Diagnoses Code Display Name Description Problem Type Effective Dates Data Source(s) LFT KNEE PAIN, LFT KNEE PAIN, Diagnosis 03/08/2019 [facility] INTOX INTOX 08:42:00 PM EST [facility] LFT KNEE PAIN LFT KNEE PAIN Diagnosis 03/08/2019 [facility] 08:42:00 PM EST [facility] Results ID Date Data Source [id number] 10/09/2019 12:17:00 PM EDT [facility] alth System Name Value Range Interpretation Code Description Data Analy rce(s) Supporting Document(s ) SARS-CoV-2 [facility] RNA [facility] Ql SAY+probe This lab was ordered by [facility] and reported by [facility]. ID Date Data Source [id number] 09/19/2019 09:52:00 AM EDT [facility] System Name Value Range Interpretation Code Description Data Analy rce(s) Supporting Document(s ) SARS-CoV-2 [facility] RNA [facility] Ql SAY+probe This lab was ordered by [facility] and reported by [facility]. ID Date Data Source [id number] 08/28/2019 12:00:00 AM EDT [facility] System Name Value Range Interpretation Code Description Data Analy rce(s) Supporting Document(s ) SARS-CoV-2 [facility] RNA [facility] Ql SAY+probe This lab was ordered by [facility] and reported by [facility]. ID Date Data Source [id number] 07/25/2019 01:22:00 PM EDT [facility] System Name Value Range Interpretation Code Description Data Analy rce(s) Supporting Document(s ) SARS-CoV-2 [facility] RNA XXX Ql Health System SAY+probe This lab was ordered by [facility] and reported by [facility]. ID Date Data Source [id number] 07/23/2019 08:15:00 AM EDT [facility] Name Value Range Interpretation Code Description Data Analy rce(s) Supporting Document(s ) SARS-CoV-2 [facility] RNA Resp [facility] System Ql SAY+probe This lab was ordered by [facility] and reported by [facility]. Procedure
[2019-11-22] MEDS: CLOTRIMAZOLE/BETAMET DIPROP TOPICAL CREAM 45 GM TUBE TP SCH (22:27)
[2019-11-22] MEDS: MELATONIN 5 MG TABLETS PO SCH (22:27)
[2019-11-22] MEDS: THIAMINE HCL 100 MG TABLET (FP) PO SCH (22:27)
[2019-11-23] MEDS: chlordiazePOXIDE HCL 25 MG CAPSULE PO SCH ×4 (05:36→22:18)
[2019-11-23] MEDS: hydrOXYzine PAMOATE 25 MG CAPSULE (FP) PO SCH ×5 (05:36→22:18)
--- NOTE | 2019-11-23 11:02 | PN ---
S CIWA - CIWA Score Nausea/Vomitin-No Nausea/No Vomiting Muscle Tremors: 2 Anxiety: 3 Agitation: 0-Normal Activity Paroxysmal Sweats: 3 Orientation: 0-Oriented Tacttile Disturbances: 0-None Auditory Disturbances: 0-None Visual Disturbances: 0-None Headache: 2-Mild CIWA-Ar Total Score: 10 S Progress Note (SOAP) Subjective: c/o anxiety, headache, irritability, sweats, and shakes. Objective: 11/23/19 11:01 Vital Signs 11/23/19 11/23/19 06:31 08:35 Temperature 97.1 F L 97.8 F Pulse Rate 59 L 73 Respiratory 18 16 Rate Blood Pressure 146/90 108/68 O2 Sat by Pulse 98 98 Oximetry (%) Laboratory Last Values WBC 4.7 K/mm3 (4.0-10.0) 11/22/19 10:25 RBC 3.90 M/mm3 (4.00-5.60) L 11/22/19 10:25 Hgb 12.1 GM/dL (11.7-16.9) 11/22/19 10:25 Hct 35.4 % (35.4-49) 11/22/19 10:25 MCV 90.7 fl (80-96) 11/22/19 10:25 MCH 30.9 pg (25.7-33.7) 11/22/19 10:25 MCHC 34.1 g/dl (32.0-35.9) 11/22/19 10:25 RDW 14.9 % (11.9-15.9) 11/22/19 10:25 Plt Count 286 K/MM3 (134-434) 11/22/19 10:25 MPV 8.3 fl (7.5-11.1) 11/22/19 10:25 Sodium 140 mmol/L (136-145) 11/22/19 10:25 Potassium 4.4 mmol/L (3.5-5.1) 11/22/19 10:25 Chloride 106 mmol/L (98-107) 11/22/19 10:25 Carbon Dioxide 28 mmol/L (21-32) 11/22/19 10:25 Anion Gap 6 MMOL/L (8-16) L 11/22/19 10:25 BUN 8.1 mg/dL (7-18) 11/22/19 10:25 Creatinine 0.9 mg/dL (0.55-1.3) 11/22/19 10:25 Est GFR (CKD-EPI)AfAm 124.26 11/22/19 10:25 Est GFR (CKD-EPI)NonAf 107.21 11/22/19 10:25 Random Glucose 103 mg/dL (74-106) 11/22/19 10:25 Calcium 9.2 mg/dL (8.5-10.1) 11/22/19 10:25 Total Bilirubin 0.8 mg/dL (0.2-1) 11/22/19 10:25 AST 88 U/L (15-37) H 11/22/19 10:25 ALT 42 U/L (13-61) 11/22/19 10:25 Alkaline Phosphatase 168 U/L (45-117) H 11/22/19 10:25 Total Protein 9.3 g/dl (6.4-8.2) H 11/22/19 10:25 Albumin 4.0 g/dl (3.4-5.0) 11/22/19 10:25 Syphilis Serology Non-reactive (NONREACTIVE) 11/22/19 10:25 Labs noted. Assessment: 11/23/19 11:01 AOX3, in no acute respiratory distress. Full ROM, ambulating in the unit. Withdrawal symptoms. Plan: continue detox.
[2019-11-23] MEDS: PRENATAL VITAMINS W/ FOLIC ACID TABLET (FP) PO SCH (11:10)
[2019-11-23] MEDS: NICOTINE 7 MG/24 HOURS TOPICAL PATCH TD SCH (11:10)
--- NOTE | 2019-11-23 11:17 | CONSULT ---
[facility] Psychiatric Consult - Data Date of interview: 11/23/19 Admission source: [facility] Identifying data: Revisit to [facility] and admission to [address] [place] [address] for this 39 y/o AA male self-referred for detoxification treatment. JAVIER issues : cannabis/K2, alcohol, cocaine, nicotine. Patient is single, no dependents, homeless, unemployed, deprived of income and dependent on occasional donations from relatives. Substance Abuse History: Discussed with the patient in this session. JAVIER profile as follows : Alcohol. Substance amount: 12 beers 24 oz. Frequency of use: Daily. Substance route: Oral. Date of Last Use: 11/22/19 (6am started age 16). Cocaine-Crack. Substance amount: $10. Frequency of use: Daily. Substance route: Smoking. Date of Last Use: 11/20/19. Marijuana/Hashish. Substance amount: 3 joints. Frequency of use: Daily. Substance route: Smoking. Date of Last Use: 11/21/19. Nicotine. Substance amount: 1 pack. Frequency of use: Daily. Substance route: Smoking. Date of Last Use: 11/22/19. Smoking history: Current every day smoker. Have you smoked in the past 12 months: Yes. Approximately how many cigarettes per day: 20. Cigars Per Day: 0. Hx Chewing Tobacco Use: No. Initiated information on smoking cessation: Yes. 'Breaking Loose' booklet given: 11/22/19. - Substances abused. Alcohol. Substance route: Oral. Frequency: Daily. Amount used: 12 24 oz beers. Age of first use: 16. Date of last use: 11/22/19. Crack. Substance route: Smoking. Frequency: Daily. Amount used: $10. Age of first use: 39. Date of last use: 11/20/19. Marijuana/Hashish. Substance route: Smoking. Frequency: Daily. Amount used: 3 joints. Age of first use: 18. Date of last use: 11/21/19. History of multiple JAVIER treatment failures. Medical History: Medical profile is remarkable for diabetes mellitus, bronchial asthma, antecedent of drug overdose and history of withdrawal-related seizures. Psychiatric History: Patient endorses a history of multiple psychiatric hospitalizations ([facility], [facility]) and the diagnosis of schizophrenia. Mr Wilder reports that he used to be prescribed psychotropic medications (risperdal). Patient has dropped out of psychiatric treatment for several months. Has no contact with mental health care providers. Patient denies history of suicide attempts. Physical/Sexual Abuse/Trauma History: Patient denies. Additional Comment: Urine drug screen results: THC-Marijuana. Noted. Mental Status Exam - Mental Status Exam Alert and Oriented to: Time, Place, Person Cognitive Function: Good Patient Appearance: Unkempt, Disheveled Mood: Withdrawn, Hopeful Affect: Mood Congruent, Constricted Patient Behavior: Fatigued, Appropriate (calm and friendly on approach), Cooperative Speech Pattern: Clear (poverty of speech) Voice Loudness: Normal Thought Process: Goal Oriented Thought Disorder: Bizarre Hallucinations: Denies Suicidal Ideation: Denies Homicidal Ideation: Denies Insight/Judgement: Poor Sleep: Well Appetite: Good Gait/Station: Normal Psychiatric Findings - Problem List ([place] 1, 2,3) (1) Alcohol dependence with uncomplicated withdrawal Current Visit: Yes Status: Acute (2) Cannabis dependence Current Visit: Yes Status: Chronic (3) Cocaine dependence Current Visit: Yes Status: Chronic Qualifiers: Substance use status: uncomplicated Qualified Code(s): F14.20 - Cocaine dependence, uncomplicated (4) Nicotine dependence Current Visit: Yes Status: Chronic Qualifiers: Nicotine product type: cigarettes Substance use status: other nicotine- induced disorder Qualified Code(s): F17.218 - Nicotine dependence, cigarettes, with other nicotine-induced disorders (5) Substance induced mood disorder Current Visit: Yes Status: Chronic (6) Schizophrenia Current Visit: Yes Status: Chronic Qualifiers: Schizophrenia type: unspecified Qualified Code(s): F20.9 - Schizophrenia, unspecified Comment: As per history and records ([facility]). (7) Non-compliance Current Visit: Yes Status: Chronic - Initial Treatment Plan Initial Treatment Plan: Psychoeducation : patient made aware of the importance of adherence to psychiatric/medical treatment. MAT interventions suggested to the patient. Support. Sleep hygiene. Detoxification in effect. Resume risperdal 1 mg po bid. Side effects (abnormal involuntary movements, dystonia, tardive dyskinesia, neuroleptic malignant syndrome, galactorrhea, gynecomastia, sexual impotence, cardiovascular adverse events) and benefits (good general functioning, reduction of relapses, wellness) are discussed with the patient. Mr Wilder grants his consent for this plan of care. Observation.
[2019-11-23] MEDS: CLOTRIMAZOLE/BETAMET DIPROP TOPICAL CREAM 45 GM TUBE TP SCH ×2 (11:31→22:18)
[2019-11-23] MEDS: THIAMINE HCL 100 MG TABLET (FP) PO SCH (22:18)
[2019-11-23] MEDS: MELATONIN 5 MG TABLETS PO SCH (22:18)
[2019-11-23] MEDS: risperiDONE 1 MG TABLET PO SCH (22:18)
[2019-11-24] MEDS: chlordiazePOXIDE HCL 25 MG CAPSULE PO SCH ×3 (05:24→18:31)
[2019-11-24] MEDS: hydrOXYzine PAMOATE 25 MG CAPSULE (FP) PO SCH ×3 (05:24→16:01)
[2019-11-24] MEDS: PRENATAL VITAMINS W/ FOLIC ACID TABLET (FP) PO SCH (10:34)
[2019-11-24] MEDS: CLOTRIMAZOLE/BETAMET DIPROP TOPICAL CREAM 45 GM TUBE TP SCH (10:34)
[2019-11-24] MEDS: risperiDONE 1 MG TABLET PO SCH (10:34)
[2019-11-24] MEDS: NICOTINE 7 MG/24 HOURS TOPICAL PATCH TD SCH (10:36)
--- NOTE | 2019-11-24 14:25 | PN ---
[facility] CIWA - CIWA Score Nausea/Vomitin-Mild Nausea/No Vomiting Muscle Tremors: 1-None Visible, but [place] Anxiety: 1-Mildly Anxious Agitation: 1-Slight > Activity Paroxysmal Sweats: 1-Minimal Palms Moist Orientation: 1-Uncertain about Date (day of week) Tacttile Disturbances: 0-None Auditory Disturbances: 1-Very Mild Visual Disturbances: 1-Very Mild Sensitivity Headache: 1-Very Mild CIWA-Ar Total Score: 9 S Progress Note (SOAP) Subjective: 39 years old male was admitted on 11/22/19 for alcohol withdrawal sx management treating with librium detox regiment feels tired limited conversation with staff mr martinez resume risperidone "more relaxed" Objective: 11/24/19 14:27 Laboratory Tests 11/22/19 11/22/19 11/22/19 10:25 10:25 10:25 WBC 4.7 RBC 3.90 L Hgb 12.1 Hct 35.4 MCV 90.7 MCH 30.9 MCHC 34.1 RDW 14.9 Plt Count 286 MPV 8.3 Sodium Potassium Chloride Carbon Dioxide Anion Gap BUN Creatinine Est GFR (CKD-EPI)AfAm Est GFR (CKD-EPI)NonAf Random Glucose Calcium Total Bilirubin AST ALT Alkaline Phosphatase Total Protein Albumin Syphilis Serology Non-reactive COVID-19 (SAY) Not detected 11/22/19 10:25 WBC RBC Hgb Hct MCV MCH MCHC RDW Plt Count MPV Sodium 140 Potassium 4.4 Chloride 106 Carbon Dioxide 28 Anion Gap 6 L BUN 8.1 Creatinine 0.9 Est GFR (CKD-EPI)AfAm 124.26 Est GFR (CKD-EPI)NonAf 107.21 Random Glucose 103 Calcium 9.2 Total Bilirubin 0.8 AST 88 H ALT 42 Alkaline Phosphatase 168 H Total Protein 9.3 H Albumin 4.0 Syphilis Serology COVID-19 (SAY) mr martinez prefers librium for alcohol detox 11/24/19 14:28 Assessment: 11/24/19 14:28 alcohol withdrawal Plan: librium regiment
--- NOTE | 2019-11-24 17:40 | DS ---
[facility] Detox Discharge Summary Admission Date: 11/22/19 - History Additional Comments: called by nursing for pt wanting to leave. Upon arrival to floor, pt was being escorted off the unit by security d/t punching cabinets and making threatening remarks to staff , show card writer approached pt to address any medical concerns , pt started using foul language , declined to speak w/ show card writer. Pt was observed ambulating freely . Vital Signs - 24 hr 11/23/19 11/24/19 11/24/19 21:22 06:23 08:35 Temperature 97.5 F L 97.3 F L 97.3 F L Pulse Rate 78 67 66 Respiratory 16 18 16 Rate Blood Pressure 138/97 136/99 143/74 O2 Sat by Pulse 100 99 99 Oximetry (%) 11/24/19 13:38 Temperature 97.3 F L Pulse Rate 94 H Respiratory 18 Rate Blood Pressure 123/82 O2 Sat by Pulse 100 Oximetry (%) - Physical Exam Results Vital Signs: Vital Signs Temperature 97.3 F L 11/24/19 13:38 Pulse Rate 94 H 11/24/19 13:38 Respiratory Rate 18 11/24/19 13:38 Blood Pressure 123/82 11/24/19 13:38 O2 Sat by Pulse Oximetry (%) 100 11/24/19 13:38 - Medication Discharge Medications: Ambulatory Orders Albuterol Sulfate Inhaler - [Ventolin Hfa Inhaler -] 2 inh PO Q4H PRN 03/19/15 Risperidone [Risperdal] 2 mg PO BID 03/19/15 - AMA Did Patient Leave Against Medical Advice: Yes
[2019-11-24 17:58] VITALS: BP 135/95; PULSE 98; TEMP 98.4
[2019-11-25] MEDS ORDERED: chlordiazePOXIDE HCL 10 MG CAPSULE PO PRN
[2019-11-25] MEDS ORDERED: chlordiazePOXIDE HCL 10 MG CAPSULE PO SCH (05:00)
[2019-11-26] MEDS ORDERED: chlordiazePOXIDE HCL 10 MG CAPSULE PO SCH (05:00)
[2019-11-27] MEDS ORDERED: chlordiazePOXIDE HCL 10 MG CAPSULE PO ONE (05:00)
== END 2019-11-24 17:21 | disposition left against medical advice (07) | DRG 770 ==
LOC: YASAS 08:54 → Y3N 09:52
PROVIDERS: ADMIT Allergy & Immunology; ATTEND Allergy & Immunology
PROC: HZ2ZZZZ Detoxification Services for Substance Abuse Treatment (ICD-10-PCS; principal; 2019-11-22)
DX: F10.230 Alcohol dependence with withdrawal, uncomplicated (principal); F14.20 Cocaine dependence, uncomplicated; F12.20 Cannabis dependence, uncomplicated; F17.210 Nicotine dependence, cigarettes, uncomplicated; F20.9 Schizophrenia, unspecified; F19.24 Other psychoactive substance dependence with psychoactive substance-induced mood disorder; E11.9 Type 2 diabetes mellitus without complications; J45.20 Mild intermittent asthma, uncomplicated; Z86.69 Personal history of other diseases of the nervous system and sense organs; Z56.0 Unemployment, unspecified; Z59.0 Homelessness; Z91.012 Allergy to eggs; Z91.013 Allergy to seafood; Z91.19 Patient's noncompliance with other medical treatment and regimen
CPT/HCPCS: 36415; 80053; 85027; 86780; J2794; U0003